=== PATIENT | male | born 1980 | race Caucasian/White ===

== ENCOUNTER 2019-05-19 12:31 | Inpatient (IN) | payer OTHER ==
[~2019-05-19] VITALS: Ht 193 cm; Wt 85.8 kg
--- NOTE | 2019-05-19 13:00 | RAD ---
Single AP view of the chest. Comparison: None. Indication: Unresponsive Findings: The heart is not enlarged. There is no pneumothorax or effusion. No air space or interstitial disease. Impression: 1. No acute cardiopulmonary process. Electronically signed by: Marcus Hammond MD (05/19/2019 12:57 PM) [facility] [place]
--- NOTE | 2019-05-19 13:03 | RAD ---
CT head and cervical spine without contrast History: Found unresponsive Technique: Noncontrast CT imaging was performed of the head and cervical spine. Multiplanar reconstruction images are submitted. Exposure: One or more of the following individualized dose reduction techniques were utilized for this examination: 1. Automated exposure control 2. Adjustment of the mA and/or kV according to patient size 3. Use of iterative reconstruction technique. Head CT Comparison: None Findings: There is some motion. No convincing acute extra-axial or parenchymal hemorrhage is identified. There is no significant intra-axial mass effect, midline shift, or extra-axial fluid collection. There are some small foci of low density of the right caudate nucleus, uncertain if due to old lacunar infarcts. There is also small focus of low density of the left frontal parenchyma near the cortical surface image 17 series 2. The carrillo-white differentiation of the major vascular territories is preserved. The ventricles, sulci, and cisterns are within normal limits in size and configuration. The mastoid air cells and the visualized paranasal sinuses are aerated. There is no significant focal calvarial abnormality. There is some atherosclerotic calcification of the left intradural vertebral artery. Impression: 1. Allowing for mild motion, there is no convincing evidence of acute intracranial hemorrhage. 2. There is a small focus of nonspecific lower density of the left frontal lobe near the cortical surface, findings better characterized with MRI as per clinical indication, uncertain if true findings or artifact. There also some small foci of lower density of the right caudate nucleus, sequela of older lacunar infarcts a consideration. 3. There is some atherosclerotic calcification of the left intradural vertebral artery. Cervical spine CT Comparison: None Findings: No acute cervical spine fracture is identified. Vertebral body stature and AP alignment are within normal limits. Atlanto-axial distance is within normal limits. There is appropriate alignment of lateral masses of C1 relative to C2. Occipital condylar-C1 relationship is maintained. There is moderate degenerative disc disease C4-5 and to lesser degree C5-6 and C6-7. There is mild spondylosis greatest C5-6 and to lesser degree C4-5 and C6-7. No significant cervical spinal stenosis is identified on this nonmyelographic exam, likely borderline central canal narrowing at C5-6 and C4-5. There is multilevel cervical facet degenerative change. There is multilevel uncovertebral degenerative change. There is severe narrowing of the left C6-7 neural foramen, mild narrowing on the right at C3-4 through C6-7. There is some atherosclerotic calcification of the right carotid artery in the neck. Impression: 1. No acute cervical spine fracture is identified. 2. There is degenerative disc disease and spondylosis greatest C4-5 through C6-7. 3. There is multilevel facet and uncovertebral degenerative change. There is multilevel neural foramina compromise greatest on the left at C6-7. Findings discussed with NATACHA LEMUS at 05/19/2019 12:51 PM. FOR INTERNAL CODING PURPOSES RESULT CODE: (C) Electronically signed by: Ilya Viveros MD (05/19/2019 1:00 PM) [facility]
[2019-05-19 13:04] LABS: BASO % 1 % (0-3); EOS # 0.1 x10^3/uL (0.0-0.7); EOS % 2 % (0-3); HEMATOCRIT 38.5 % (39.0-53.0); LYMPH # 0.6 x10^3/uL (1.0-4.8); LYMPH % 20 % (24-48); MEAN CORPUSCULAR HEMOGLOBIN 31 pg (25-35); MEAN CORPUSCULAR HGB CONC 34 g/dL (31-37); MEAN CORPUSCULAR VOLUME 91 fL (79-100); MONO # 0.3 x10^3/uL (0.0-1.1); MONO % 10 % (0-9); NEUT # 2.1 x10^3uL (1.8-7.7); NEUT % 67 % (31-73); PLATELET COUNT 469 x10^3/uL (140-400); RED BLOOD COUNT 4.23 x10^6/uL (4.30-5.70); RED CELL DISTRIBUTION WIDTH 14.2 % (11.5-14.5); WHITE BLOOD COUNT 3.1 x10^3/uL (4.0-11.0)
--- NOTE | 2019-05-19 13:08 | PHYS DOC ---
Adult General Chief Complaint Chief Complaint: ALTERED MENTAL STATUS HPI HPI 39-year-old male [facility]. The patient was reported only responsive to pain or EMS. They picked him up lying under someone's staircase. His vitals are within normal limits, but he would not respo nd. He was taken as a code stroke to our CT scanner. The patient will not answer my questions, but is all entirely opening his eyes. He did open his mouth on command. Review of Systems Review of Systems Unable to assess, due to patient not answering questions Current Medications Current Medications Current Medications Medications (Trade) Dose Ordered Sig/Luisa Start Time Stop Time Status Last Admin Dose Admin Naloxone HCl (Narcan) 2 mg 1X ONCE 05/19/19 13:15 05/19/19 13:16 Allergies Allergies Allergies Coded Allergies Type Severity Reaction Last Updated Verified Unable to Assess 05/19/19 No Physical Exam Physical Exam Constitutional: Well developed, well nourished, non-toxic appearance. [] HENT: Normocephalic, atraumatic, bilateral external ears normal, oropharynx moist, no oral exudates, nose normal. [] Eyes: PERRLA, EOMI, conjunctiva normal, no discharge. [] Neck: Normal range of motion, no tenderness, supple, no stridor. [] Cardiovascular:Heart rate regular rhythm, no murmur [] Lungs & Thorax: Bilateral breath sounds clear to auscultation [] Abdomen: Bowel sounds normal, soft, no tenderness, no masses, no pulsatile masses. [] Skin: Warm, dry, no erythema, no rash. [] Back: No tenderness, no CVA tenderness. [] Extremities: No tenderness, no cyanosis, no clubbing, ROM intact, no edema. [] Neurologic: GCS 12. Responsive to pain, spontaneously opens eyes, opens mouth on command, making facial expressions.[] Psychologic: Unable to assess. [] EKG EKG Sinus rhythm, rate 78, normal axis, no ST elevations or depressions.[] Radiology/Procedures Radiology/Procedures [] Course & Med Decision Making Course & Med Decision Making Pertinent Labs and Imaging studies reviewed. (See chart for details) Upon my initial examination, I do not believe this is stroke. His CT was negative for hemorrhage. There were some incidental findings that are old, see official read for details. Patient appears to be intoxicated with some substance. He was given 2 mg of Narcan which had no effect. The patient was initially only responsive to pain, but he did spontaneously open his eyes, make facial expressions, and obeyed commands when I ask that he open his mouth. He did not obey commands other than this. Workup is pending. The patient's labs are basically unremarkable except for lactic acid of 2.7. A repeat lactic acid has been ordered. His urine drug screen is positive for alcohol with a level of 395. We will give the patient 2 liters of normal saline. The patient is awake and calls out. He still isn't making very much sense when he talks. I spoke with the hospitalist, Dr. James and he has accepted the patient for admission altered mental status and alcohol intoxication. [] Dragon Disclaimer Dragon Disclaimer This electronic medical record was generated, in whole or in part, using a voice recognition dictation system. Departure Departure: Impression: Primary Impression: Altered mental status Additional Impressions: Alcohol intoxication delirium Lactic acid acidosis Disposition: 09 ADMITTED INPATIENT Admitting Physician: Nancy James Condition: GUARDED Problem Qualifiers Primary Impression: Altered mental status Altered mental status type: delirium Qualified Codes: R41.0 - Disorientation, unspecified NAATCHA LEMUS DO May 19, 2019 13:08
[2019-05-19 13:10] LABS: BARBITURATES NEG (NEG); BENZODIAZEPINES NEG (NEG); CANNABINOIDS NEG (NEG); COCAINE NEG (NEG); METHADONE NEG (NEG); OPIATES NEG (NEG); PHENCYCLIDINE NEG (NEG)
[2019-05-19 13:14] LABS: AMPHETAMINE/METHAMPHETAMINE NEG (NEG)
[2019-05-19] MEDS ORDERED: NALOXONE 2 MG/2 ML DISP.SYRIN. IV ONE (13:15)
[2019-05-19 13:19] LABS: CLARITY,URINE CLEAR; COLOR,URINE STRAW
[2019-05-19 13:20] LABS: BACTERIA,URINE 0 /HPF (0-FEW); BILIRUBIN,URINE NEG (NEG); GLUCOSE,URINE NEG (NEG); NITRITE,URINE NEG (NEG); RBC,URINE 0 /HPF (0-2); UROBILINOGEN,URINE 0.2 mg/dL (0.2 mg/dL); WBC,URINE 0 /HPF (0-4)
[2019-05-19 13:25] LABS: ALBUMIN 3.6 g/dL (3.4-5.0); ALBUMIN/GLOBULIN RATIO 0.8 (1.0-1.7); CALCIUM 8.7 mg/dL (8.5-10.1); GFR 82.3; POTASSIUM 3.5 mmol/L (3.5-5.1); TOTAL BILIRUBIN 0.2 mg/dL (0.2-1.0); TOTAL PROTEIN 8.3 g/dL (6.4-8.2)
[2019-05-19] MEDS ORDERED: IV NORMAL SALINE 1,000ML 1,000 ML IV ONE ×2 (13:45→14:15)
[2019-05-19] MEDS ORDERED: ONDANSETRON PF 4 MG/2 ML VIAL. IV PRN ×2 (14:15→16:30)
--- NOTE | 2019-05-19 14:58 | EKG ---
[address] [address] Test Date: 2019-05-19 Test Time: 12:39:25 Pat Name: ALYSSA BENÍTEZ Department: Room: 125 A Gender: M Information Systems Supervisor: : 1980 Requested By: NATACHA LEMUS Order Number: [id number] Reading MD: Albert Downs MD Measurements Intervals [place] Rate: 78 P: 45 NV: 166 QRS: 56 QRSD: 78 T: 48 QT: 376 QTc: 432 Interpretive Statements SINUS RHYTHM Electronically Signed On 05-30-2019 10:11:55 CDT by Albert Downs MD
[2019-05-19 15:32] VITALS: BP 125/72
[2019-05-19] MEDS: IV NORMAL SALINE 1,000ML 1,000 ML IV SCH (16:16)
[2019-05-19] MEDS ORDERED: ACETAMINOPHEN 325 MG TABLET PO PRN (16:30)
[2019-05-19] MEDS ORDERED: HALOPERIDOL LACT 5 MG/ML VIAL. IM PRN (16:30)
[2019-05-19 19:26] VITALS: BP 128/82
[2019-05-20] MEDS: IV NORMAL SALINE 1,000ML 1,000 ML IV SCH ×3 (00:03→18:42)
--- NOTE | 2019-05-20 01:49 | HP ---
ADMIT DATE: 05/19/2019 HISTORY OF PRESENT ILLNESS: The patient is a 39-year-old -Swiss male patient who apparently was brought by EMS as a referral from [facility]. The patient was reportedly unresponsive to pain. They picked him up lying under someone's staircase. His vital signs were within normal limits, but he would not respond. He was taken as a code stroke to our CT scanner. The patient would not answer any question, but was able to open his eyes. He did not open his mouth on command. He was extensively investigated and was found to be intoxicated with blood alcohol level of 395. He did have lactic acidosis, but otherwise all his lab works were within normal limits and was admitted for observation and to start him on alcohol withdrawal protocol if deemed necessary. PAST MEDICAL HISTORY: Unobtainable. PAST SURGICAL HISTORY: Unobtainable. FAMILY HISTORY: Unobtainable. SOCIAL HISTORY: Also unobtainable. ALLERGIES: Unknown. MEDICATIONS: No known medication. PHYSICAL EXAMINATION: GENERAL: On arrival to the Emergency Room, he was well-developed, well-nourished, and nontoxic 39-year-old. VITAL SIGNS: His heart rate was 76, blood pressure was 102/37, temperature was 97.5, respiratory rate was 18 and oxygen saturation was 98% on room air. HEAD, EYES, EARS, NOSE AND THROAT: Showed normocephalic, atraumatic. NECK: Supple. HEART: Showed normal first and second heart sounds. No gallop or murmur. CHEST: Clear to auscultation. No crepitation or rhonchi. ABDOMEN: Distended, soft, nontender. NEUROLOGIC: He is unresponsive. He does actually open his ____ some words, but he drifts back to sleep. All his cranial nerves seem to be grossly intact. LABORATORY DATA: On admission showed a serum sodium 142, potassium 3.5, chloride 104, bicarbonate 25, anion gap of 13, BUN 5, creatinine 1, estimated GFR was 82 mL per minute. His glucose was 96, lactic acid was 2.7, calcium was 8.7. Total bilirubin, AST, ALT, alkaline phosphatase were normal. His total protein was 8.3, albumin 3.6. His white cell count was 3100, hemoglobin 13, hematocrit 39, MCV 91, and platelet count of 469,000 with normal manual differential. His urinalysis showed the urine was straw colored, clear with a pH of 5.5, specific gravity 1.005. The urine was essentially unremarkable. Toxic screen was negative except for blood alcohol level of 395 mg/dL. He did have a CT scan of the head and cervical spine, which showed that the patient has no convincing evidence of acute intracranial hemorrhage. There is small focus of nonspecific lower density of the left frontal lobe near the cortical surface, finding better characterize in MRI as the clinical indication, uncertain if true finding or artifact. There are also some small foci of lower density on the right caudate nucleus, sequelae of old lacunar infarct consideration. There is some atherosclerotic calcification of the left intracranial and intradural vertebral artery. There is no acute cervical spine fracture identified. There is degenerative disk disease and spondylosis, greater at C4-C5 through C6-C7. There are multilevel facet and uncovertebral degenerative changes. There is multilevel neural foramina compromise, greater on the left at C6-C7. His chest x-ray showed the heart is not enlarged. There is no pneumothorax or effusion. No airspace or interstitial disease. ASSESSMENT AND PLAN: In summary, this is a 39-year-old -Swiss male patient who was brought by the ambulance as he was found unresponsive ____ he has alcohol intoxication with a blood alcohol level of 395. He has also lactic acidosis. Plan is to continue with IV fluids. We will start him on banana bag, alcohol withdrawal protocol. RENITA RAE MD DR: LEONA/marino JOB#: [id number] / [id number]
[2019-05-20 06:34] VITALS: BP 152/91
[2019-05-20 07:07] LABS: ALBUMIN 3.1 g/dL (3.4-5.0); ALBUMIN/GLOBULIN RATIO 0.6 (1.0-1.7); CALCIUM 8.6 mg/dL (8.5-10.1); CREATININE 0.9 mg/dL (0.7-1.3); POTASSIUM 3.7 mmol/L (3.5-5.1); TOTAL BILIRUBIN 0.2 mg/dL (0.2-1.0); TOTAL PROTEIN 7.9 g/dL (6.4-8.2)
[2019-05-20 07:17] LABS: BASO % 0 % (0-3); EOS # 0.1 x10^3/uL (0.0-0.7); EOS % 2 % (0-3); HEMATOCRIT 40.1 % (39.0-53.0); HEMOGLOBIN 13.2 g/dL (13.0-17.5); LYMPH # 0.5 x10^3/uL (1.0-4.8); LYMPH % 12 % (24-48); MEAN CORPUSCULAR HEMOGLOBIN 30 pg (25-35); MEAN CORPUSCULAR HGB CONC 33 g/dL (31-37); MEAN CORPUSCULAR VOLUME 92 fL (79-100); MONO # 0.5 x10^3/uL (0.0-1.1); MONO % 13 % (0-9); NEUT # 2.8 x10^3uL (1.8-7.7); NEUT % 73 % (31-73); PLATELET COUNT 441 x10^3/uL (140-400); RED BLOOD COUNT 4.37 x10^6/uL (4.30-5.70); RED CELL DISTRIBUTION WIDTH 14.1 % (11.5-14.5); WHITE BLOOD COUNT 3.8 x10^3/uL (4.0-11.0)
[2019-05-20 07:18] LABS: MAGNESIUM 1.8 mg/dL (1.8-2.4)
[2019-05-20] MEDS: diphenhydrAMINE 50 MG/ML VIAL IVP PRN ×2 (07:23→19:54)
[2019-05-20] MEDS: chlordiazePOXIDE HCL 25 MG CAPSULE PO PRN ×3 (07:23→19:54)
[2019-05-20 11:30] VITALS: BP 140/87
[2019-05-20 15:54] VITALS: BP 125/77
--- NOTE | 2019-05-20 18:08 | PN ---
DATE: 05/20/2019 SUBJECTIVE: The patient is slightly more awake, alert. He apparently sat down and ate breakfast. He is mumbling and difficult to understand, but [place] [facility] for the last 6 years. He is not , has no children, but apparently he has been a heavy drinker according to his mother and brother. PHYSICAL EXAMINATION: GENERAL: When I saw him this afternoon, he looked well and was clearly in no apparent respiratory distress. No pallor, jaundice, cyanosis or thyromegaly. No jugular venous distention. No limb edema. VITAL SIGNS: Her heart rate was 101, blood pressure 140/87, temperature was 98.7, respiratory rate was 18 and oxygen saturation was 99% on room air. HEAD, EYES, EARS, NOSE AND THROAT: Showed normocephalic, atraumatic. NECK: Supple. HEART: Showed normal first and second heart sounds. No gallop or murmur. CHEST: Clear to auscultation. No crepitation or rhonchi. ABDOMEN: Distended, soft, nontender. No guarding or rigidity. No organomegaly. All cranial nerves intact. Bowel sounds normal. NEUROLOGIC: He is slightly more awake, alert; however, continue to mumble and difficult to understand and unsteady on his feet. Plan is to continue with IV fluid, continue with alcohol withdrawal protocol. LABORATORY DATA: His lab work this morning showed a white cell count 3800, hemoglobin 13, hematocrit 40, MCV 92, and platelet count of 441,000. Serum sodium was 139, potassium 3.7, chloride 105, bicarbonate 22, anion gap of 12, BUN 3, creatinine 0.9, estimated GFR was 93. Glucose was 76, calcium was 8.6 and magnesium was 1.8. Total bilirubin, AST, ALT, alkaline phosphatase were normal. CK was only 168. Total protein was 7.9, albumin 3.1. ASSESSMENT: 1. Alcohol intoxication. 2. Traumatic brain injury. 3. Posttraumatic stress disorder. RENITA RAE MD DR: LEONA/marino JOB#: [id number] / [id number]
[2019-05-20 18:48] VITALS: BP 148/95
[2019-05-20] MEDS ORDERED: STERILE WATER IV SCH (19:30)
[2019-05-20] MEDS ORDERED: SODIUM BICARBONATE IVF IV SCH (19:30)
[2019-05-20] MEDS ORDERED: SODIUM CHLORIDE IV SCH (19:30)
[2019-05-21 02:24] VITALS: BP 140/94
[2019-05-21] MEDS: IV NORMAL SALINE 1,000ML 1,000 ML IV SCH (04:07)
[2019-05-21 07:34] VITALS: BP 165/10
[2019-05-21] MEDS: chlordiazePOXIDE HCL 25 MG CAPSULE PO PRN ×2 (09:09→13:19)
[2019-05-21 11:00] VITALS: BP 139/84
[2019-05-21] MEDS ORDERED: CHLO25CA9 PO (11:47)
[2019-05-21] MEDS ORDERED: CHLO1CAP PO (11:47)
[2019-05-21 13:30] VITALS: BP 122/74
--- NOTE | 2019-06-29 12:08 | DS ---
DATE OF DISCHARGE: 05/21/2019 HOSPITAL COURSE: The patient is a 39-year-old -[place] male patient who was apparently brought to the Emergency Room of [facility] as a referral from the [facility]. The patient was reportedly unresponsive to pain. They picked him up lying under someone's staircase. His vital signs were within normal limits, but he would not respond. He was taken as a code stroke to our CT scanner. The patient would not answer any question, but was able to open his eyes. He did not open his mouth on command. He was extensively investigated and was found to be intoxicated with a blood alcohol of 395 mg/dL. He did have also lactic acidosis, but otherwise all his lab works were within normal limits and was admitted for observation and was started on alcohol withdrawal protocol. He did actually very well and on the day of discharge, he was more awake, alert, was sitting on the edge of the bed, eating his breakfast continued to be mumbling and difficult to understand, but [facility] for the last 6 years. He is not , has no children, but apparently has been a heavy drinker according to his mother and brother. We did contact his brother and [id number] and they agreed to take him home and therefore, the patient was discharged in a taxi and his [id number] would be there to help the patient out of the car taxi. The patient agreed to discharge plan, was able to get in the taxi with assistance. PHYSICAL EXAMINATION: GENERAL: On the day of discharge, he looked well and was clearly in no apparent respiratory distress. No pallor, jaundice, cyanosis or thyromegaly. No jugular venous distention. No limb edema. VITAL SIGNS: Her heart rate was 74, blood pressure was 122/74, temperature was 98.4, respiratory rate was 18 and oxygen saturation was 98% on room air. The rest of clinical exam is stable. LABORATORY DATA: Showed a serum sodium 139, potassium 3.7, chloride 105, bicarbonate 22, anion gap of 12, BUN 3, creatinine 0.9, estimated GFR was 93 mL per minute, his glucose was 76, calcium was 8.6, magnesium was 1.8. Total bilirubin, AST, ALT, alkaline phosphatase were normal. Total protein was 7.6, albumin was 3.1. His CK was 168. His most recent lactic acid was down to 1.9. DISCHARGE MEDICATIONS: The patient was discharged home to his brother and [id number] to continue on chlordiazepoxide 50 mg 4 times a day. FINAL DISCHARGE DIAGNOSES: 1. Alcohol intoxication. 2. Traumatic brain injury. 3. Post-traumatic stress disorder. RENITA RAE MD DR: LEONA/marino JOB#: [id number] / [id number]
== END 2019-05-21 14:30 | disposition home or self-care (01) | DRG 897 ==
LOC: ER 12:31 → EEVIPCON 12:31 → 1 SOUTH 14:20 → ICU 15:24
PROVIDERS: ADMIT Internal Medicine; ATTEND Internal Medicine
DX: F10.129 Alcohol abuse with intoxication, unspecified (principal); E87.2 Acidosis; Y90.8 Blood alcohol level of 240 mg/100 ml or more; F43.10 Post-traumatic stress disorder, unspecified
CPT/HCPCS: 36415; 70450; 71045; 72125; 80053; 80307; 81001; 82550; 83605; 83735; 84484; 85025; 93005; 96361; 96374; 96375; G0480; J1200; J2060; J2310; 99285-25; J7030